=== PATIENT | male | born 1955 | race American Indian/Alaskan Native ===

== ENCOUNTER 2018-04-25 18:13 | Emergency (ER) | payer SELFPAY ==
[2018-04-25 18:29] VITALS: BP 159/96
--- NOTE | 2018-04-25 18:29 | Emergency Department Report ---
Chief Complaint: Urogenital-Male Stated Complaint: CANT URINATE Time Seen by Provider: 04/25/18 18:27 - HPI History of Present Illness: PT HAS A/C URINARY RETENTION SEES UROLOGY LAST URINATION THIS AM CIG DENY DRUGS DENY ETOH OCC RX FLOMAX PMH URINARY RETENTION MSE COMPLETED MSE screening note: Focused history and physical exam performed. Due to findings the following was ordered: ED Disposition for MSE Condition: Stable
[2018-04-25 19:27] LABS: Hemoglobin 13.8 gm/dl (11.8-15.2); Mean Corpuscular HGB Conc 35 % (32-34); Mean Corpuscular Volume 93 fl (84-94); Platelet Count 192 K/mm3 (140-440); Red Blood Count 4.29 M/mm3 (3.65-5.03); Red Cell Distribution Width 14.1 % (13.2-15.2)
[2018-04-25 19:41] LABS: BUN/Creatinine Ratio 15; Blood Urea Nitrogen 15 mg/dL (9-20); Calcium 9.5 mg/dL (8.4-10.2); Hemolysis Index 12
[2018-04-25 19:49] LABS: Bacteria,Urine 2+ /HPF (Negative); Bilirubin,Urine NEG (Negative); Blood,Urine LG (Negative); Color,Urine Yellow (Yellow); Protein,Urine <15 mg/dL mg/dL (Negative); Urobilinogen,Urine < 2.0 mg/dL (<2.0)
== END 2018-04-26 00:10 | disposition left against medical advice (07) ==
LOC: ED 18:13
DX: R33.9 Retention of urine, unspecified (principal)
CPT/HCPCS: 36415; 51702; 80048; 81001; 85027